=== PATIENT | male | born 1965 | race African-American/Black ===

== ENCOUNTER 2017-11-06 13:50 | Outpatient (CLI) | payer BC ==
[~2017-11-06 13:50] MED LIST: MUPI2OIN2 TOP; NYST100010 EX; TRIA0.1C5 EX
== END 2017-11-06 23:39 | disposition home or self-care (01) ==
LOC: RAD 13:50
DX: K21.0 Gastro-esophageal reflux disease with esophagitis (principal); M54.5 Low back pain

== ENCOUNTER 2020-08-20 11:54 | Outpatient (CLI) | payer OTHER | END 2020-08-20 20:31 | disposition home or self-care (01) | LOC: RAD 11:54 | DX: I10 Essential (primary) hypertension (principal); E78.2 Mixed hyperlipidemia; R73.9 Hyperglycemia, unspecified; E66.9 Obesity, unspecified; Z83.79 Family history of other diseases of the digestive system | CPT/HCPCS: 93005 ==

== ENCOUNTER 2020-10-27 16:21 | Emergency (ER) | payer OTHER ==
[~2020-10-27] VITALS: Ht 170.2 cm; Wt 77.1 kg
[2020-10-27 16:31] VITALS: TEMP 97.5
[2020-10-27 17:20] VITALS: BP 142/78
== END 2020-10-27 17:22 | disposition home or self-care (01) ==
LOC: ED 16:21
DX: M54.5 Low back pain (principal); M62.830 Muscle spasm of back; V89.2XXA Person injured in unspecified motor-vehicle accident, traffic, initial encounter; Y92.89 Other specified places as the place of occurrence of the external cause
CPT/HCPCS: 96372; 99282; J1885

== ENCOUNTER 2020-12-23 08:42 | Emergency (ER) | payer OTHER ==
[~2020-12-23] VITALS: Ht 170.2 cm; Wt 77.1 kg
[2020-12-23 08:51] VITALS: TEMP 98.6
[2020-12-23 09:32] VITALS: BP 148/60
== END 2020-12-23 09:33 | disposition home or self-care (01) ==
LOC: ED 08:42
DX: H10.89 Other conjunctivitis (principal)
CPT/HCPCS: 99282; J7040

== ENCOUNTER 2022-01-14 10:05 | Outpatient (CLI) | payer OTHER | END 2022-01-14 19:10 | disposition home or self-care (01) | LOC: RESP 10:05 | PROVIDERS: ATTEND Orthopaedic Surgery Orthopaedic Surgery of the Spine | DX: G60.8 Other hereditary and idiopathic neuropathies (principal) | CPT/HCPCS: 95885; 95911 ==